=== PATIENT | female | born 1970 | race Caucasian/White ===

== ENCOUNTER 2016-08-05 09:11 | Emergency (ER) | payer BC ==
[2016-08-05 09:29] VITALS: BP 94/74
--- NOTE | 2016-08-05 10:37 | UC ---
Ear Complaint HPI - HPI Summary HPI Summary: bilateral ear plugged no ear pain, no discharge - History of Current Complaint Chief Complaint: UCEar Stated Complaint: EAR Time Seen by Provider: 08/05/16 09:35 Hx Obtained From: Patient Hx Last Menstrual Period: unsure - had a uterine ablation Onset/Duration: Gradual Onset, Lasting Days - 3, Still Present Severity Initially: Moderate Severity Currently: Moderate Pain Intensity: 0 Pain Scale Used: 0-10 Numeric Aggravating Factors: Nothing Alleviating Factors: Nothing Associated Signs/Symptoms: Positive: Hearing Loss. Negative: Discharge, Foreign Body Sensation, Trauma to Ear, Swelling @, URI Symptoms - Allergies/Home Medications Allergies/Adverse Reactions: Allergies Allergy/AdvReac Type Severity Reaction Status Date / Time No Known Allergies Allergy Verified 08/05/16 09:25 Home Medications: Home Medications NK [No Home Medications Reported] 08/05/16 [History Confirmed 08/05/16] PMH/Surg Hx/FS Hx/Imm Hx Endocrine History Of: Denies: Diabetes, Thyroid Disease, Hyperthyroidism, Hypothyroidism, Dyslipidemia Cardiovascular History Of: Denies: Cardiac Disorders, Hypertension, Pacemaker/ICD, Myocardial Infarction , Congestive Heart Failure, Atrial Fibrillation, Deep Vein Thrombosis, Bleeding Disorders Respiratory History Of: Reports: Pneumonia Denies: COPD, Asthma GI/ History Of: Denies: Gastroesophageal Reflux, Ulcer, Gastrointestinal Bleed, Gall Bladder Disease, Kidney Stones, Diverticulitis, Renal Disease, Urosepsis Neurological History Of: Denies: TIA, CVA, Dementia, Seizures, Migraine Psychological History Of: Reports: Anxiety, Depression Cancer History Of: Denies: Lung Cancer, Colorectal Cancer, Breast Cancer, Prostate Cancer, Cervical Cancer - Surgical History Surgical History: Yes Surgery Procedure, Year, and Place: Uterine Ablation, ~2011. T&A, 1975. E- sure procedure - Family History Known Family History: Positive: None Negative: Hypertension, Diabetes, Renal Disease - Social History Alcohol Use: None Substance Use Type: None Smoking Status (MU): Never Smoked Tobacco - Immunization History Most Recent Influenza Vaccination: [id number] Review of Systems Constitutional: Negative Skin: Negative Eyes: Negative ENT: Negative Respiratory: Negative All Other Systems Reviewed And Are Negative: Yes Physical Exam Triage Information Reviewed: Yes Appearance: Well-Appearing, No Pain Distress, Well-Nourished Vital Signs: Initial Vital Signs Temp 99.0 F 08/05/16 09:25 Pulse 76 08/05/16 09:25 Resp 16 08/05/16 09:25 BP 94/74 08/05/16 09:25 Pulse Ox 99 08/05/16 09:25 Vital Signs Reviewed: Yes Eyes: Positive: Conjunctiva Clear ENT: Positive: Normal ENT inspection, Hearing grossly normal, Pharynx normal, Other: - bilater cerumen impaction Neck: Positive: Supple, Nontender, No Lymphadenopathy Respiratory: Positive: Chest non-tender, Lungs clear, Normal breath sounds Cardiovascular: Positive: RRR, No Murmur, Pulses Normal Ear Complaint Course/Dx - Course Course Of Treatment: cerumen was removed from both ears using irrigation - Differential Dx/Diagnosis Provider Diagnoses: cerumen impaction Discharge - Discharge Plan Condition: Stable Disposition: HOME Patient Education Materials: Cerumen Impaction (ED) Referrals: Tiffany Vidal MD [Primary Care Provider] - If Needed
== END 2016-08-05 10:19 | disposition home or self-care (01) ==
LOC: UCCORT 09:11
DX: H61.23 Impacted cerumen, bilateral (principal); F41.9 Anxiety disorder, unspecified; F32.9 Major depressive disorder, single episode, unspecified
CPT/HCPCS: 99213; G0463

== ENCOUNTER 2016-08-10 08:54 | Emergency (ER) | payer BC ==
[2016-08-10 09:07] VITALS: BP 123/82
--- NOTE | 2016-08-10 09:22 | UC ---
Throat Pain/Nasal Binh HPI - HPI Summary HPI Summary: sore throat x 1 day no cough , no nasal congestion , no fever, or chills - History of Current Complaint Chief Complaint: UCRespiratory Stated Complaint: SORE THROAT Time Seen by Provider: 08/10/16 09:13 Hx Obtained From: Patient Hx Last Menstrual Period: n/a Onset/Duration: Gradual Onset, Lasting Days - 1, Still Present Severity: Moderate Cough: None Associated Signs & Symptoms: Negative: Dysphagia, FB Sensation, Drooling, Wheezing, Hoarseness, Sinus Discomfort, Nasal Discharge, Fever, Vomiting, Rash - Allergies/Home Medications Allergies/Adverse Reactions: Allergies Allergy/AdvReac Type Severity Reaction Status Date / Time seasonal Allergy Eyes Uncoded 08/10/16 09:07 Itchy/Swollen/Red/Watery PMH/Surg Hx/FS Hx/Imm Hx Endocrine History Of: Denies: Diabetes, Thyroid Disease, Hyperthyroidism, Hypothyroidism, Dyslipidemia Cardiovascular History Of: Denies: Cardiac Disorders, Hypertension, Pacemaker/ICD, Myocardial Infarction , Congestive Heart Failure, Atrial Fibrillation, Deep Vein Thrombosis, Bleeding Disorders Respiratory History Of: Reports: Pneumonia Denies: COPD, Asthma GI/ History Of: Denies: Gastroesophageal Reflux, Ulcer, Gastrointestinal Bleed, Gall Bladder Disease, Kidney Stones, Diverticulitis, Renal Disease, Urosepsis Neurological History Of: Denies: TIA, CVA, Dementia, Seizures, Migraine Psychological History Of: Reports: Anxiety, Depression Cancer History Of: Denies: Lung Cancer, Colorectal Cancer, Breast Cancer, Prostate Cancer, Cervical Cancer - Surgical History Surgical History: Yes Surgery Procedure, Year, and Place: Uterine Ablation, ~2011. T&A, 1975. E- sure procedure - Family History Known Family History: Positive: None Negative: Hypertension, Diabetes, Renal Disease - Social History Alcohol Use: None Substance Use Type: None Smoking Status (MU): Never Smoked Tobacco - Immunization History Most Recent Influenza Vaccination: [id number] Review of Systems Constitutional: Negative Skin: Negative Eyes: Negative ENT: Sore Throat Respiratory: Negative Cardiovascular: Negative Gastrointestinal: Negative All Other Systems Reviewed And Are Negative: Yes Physical Exam Triage Information Reviewed: Yes Appearance: Well-Appearing, No Pain Distress, Well-Nourished Vital Signs: Initial Vital Signs Temp 98.3 F 08/10/16 09:02 Pulse 97 08/10/16 09:02 Resp 12 08/10/16 09:02 BP 123/82 08/10/16 09:02 Vital Signs Reviewed: Yes Eyes: Positive: Conjunctiva Clear ENT: Positive: Normal ENT inspection, Hearing grossly normal, Pharyngeal erythema, TMs normal. Negative: Nasal congestion, Nasal drainage Neck: Positive: Supple, Nontender, No Lymphadenopathy Respiratory: Positive: Chest non-tender, Lungs clear, Normal breath sounds Cardiovascular: Positive: RRR, No Murmur, Pulses Normal Skin Exam: Normal Throat Pain/Nasal Course/Dx - Differential Dx/Diagnosis Provider Diagnoses: viral pharyngitis Discharge - Discharge Plan Condition: Stable Disposition: HOME Patient Education Materials: Pharyngitis (ED) Referrals: Tiffany Vidal MD [Primary Care Provider] - If Needed Additional Instructions: viral pharyngitis , no need for abx rest, increase fluid, Ibuprofen as needed for pain follow up as needed
== END 2016-08-10 09:37 | disposition home or self-care (01) ==
LOC: UCCORT 08:54
DX: J02.8 Acute pharyngitis due to other specified organisms (principal); B97.89 Other viral agents as the cause of diseases classified elsewhere
CPT/HCPCS: 87651; 99211; G0463

== ENCOUNTER 2016-08-12 07:16 | Emergency (ER) | payer BC ==
[2016-08-12 07:35] VITALS: BP 111/78
--- NOTE | 2016-08-12 07:35 | UC ---
Throat Pain/Nasal Binh HPI - HPI Summary HPI Summary: sever sore throat x 3 days no fever, no chills, + nasal congestion , pnd, mild cough was seen at the urgent care 2 days ago for viral sore throat , not getting better - History of Current Complaint Chief Complaint: UCRespiratory Stated Complaint: SORE THROAT Time Seen by Provider: 08/12/16 07:23 Hx Obtained From: Patient Hx Last Menstrual Period: s/p Uterine Ablation Onset/Duration: Gradual Onset, Lasting Days - 3, Still Present Severity: Severe Cough: Nonproductive Associated Signs & Symptoms: Positive: Sinus Discomfort, Nasal Discharge. Negative: Drooling, Wheezing, Hoarseness, Fever, Vomiting, Rash - Allergies/Home Medications Allergies/Adverse Reactions: Allergies Allergy/AdvReac Type Severity Reaction Status Date / Time seasonal Allergy Eyes Uncoded 08/12/16 07:24 Itchy/Swollen/Red/Watery Home Medications: Home Medications Ibuprofen TAB* [Advil TAB*] 600 mg PO Q6H PRN 08/12/16 [History Confirmed ] Pseudoephedrine TAB* [Sudafed TAB*] 60 mg PO Q6H PRN 08/12/16 [History Confirmed 08/12/16] PMH/Surg Hx/FS Hx/Imm Hx Previously Healthy: Yes - Surgical History Surgical History: Yes Surgery Procedure, Year, and Place: Uterine Ablation, ~2011. T&A, 1975. E- sure procedure - Family History Known Family History: Positive: None Negative: Hypertension, Diabetes, Renal Disease - Social History Alcohol Use: Rare Substance Use Type: None Smoking Status (MU): Never Smoked Tobacco - Immunization History Most Recent Influenza Vaccination: Not the Season Review of Systems Constitutional: Negative Skin: Negative Eyes: Negative ENT: Sore Throat, Nasal Discharge Respiratory: Cough Cardiovascular: Negative Gastrointestinal: Negative Genitourinary: Negative All Other Systems Reviewed And Are Negative: Yes Physical Exam Triage Information Reviewed: Yes Appearance: Well-Appearing, No Pain Distress, Well-Nourished Vital Signs: Initial Vital Signs Temp 98.5 F 08/12/16 07:21 Pulse 95 08/12/16 07:21 Resp 16 08/12/16 07:21 BP 111/78 08/12/16 07:21 Pulse Ox 99 08/12/16 07:21 Vital Signs Reviewed: Yes Eyes: Positive: Conjunctiva Clear ENT: Positive: Normal ENT inspection, Hearing grossly normal, Pharyngeal erythema, Nasal congestion, Nasal drainage Neck exam: Normal Neck: Positive: Supple, Nontender, No Lymphadenopathy Respiratory: Positive: Chest non-tender, Lungs clear, Normal breath sounds Cardiovascular: Positive: RRR, No Murmur, Pulses Normal Skin Exam: Normal Throat Pain/Nasal Course/Dx - Differential Dx/Diagnosis Provider Diagnoses: viral pharyngitis Discharge - Discharge Plan Condition: Stable Disposition: HOME Patient Education Materials: Pharyngitis (ED) Referrals: Tiffany Vidal MD [Primary Care Provider] - If Needed
== END 2016-08-12 07:40 | disposition home or self-care (01) ==
LOC: UCCORT 07:16
DX: J02.8 Acute pharyngitis due to other specified organisms (principal)
CPT/HCPCS: 99211; G0463

== ENCOUNTER 2017-08-04 07:22 | Emergency (ER) | payer BC ==
[2017-08-04 07:38] VITALS: BP 112/84
--- NOTE | 2017-08-04 07:50 | UC ---
Ear Complaint HPI - HPI Summary HPI Summary: 47 yo female with bilat plugged ears and decreased hearing x 2 weeks mild seasonal allergies no f/c no CASEY or myalgias - History of Current Complaint Chief Complaint: UCEar Stated Complaint: BI LAT EAR COMP Time Seen by Provider: 08/04/17 07:41 Hx Obtained From: Patient Hx Last Menstrual Period: 2 mos. Onset/Duration: Gradual Onset Severity Currently: None Pain Intensity: 0 Pain Scale Used: 0-10 Numeric Associated Signs/Symptoms: Positive: Hearing Loss - Allergies/Home Medications Allergies/Adverse Reactions: Allergies Allergy/AdvReac Type Severity Reaction Status Date / Time seasonal Allergy Eyes Uncoded 08/04/17 07:39 Itchy/Swollen/Red/Watery Home Medications: Home Medications buPROPion TAB* [Wellbutrin TAB*] 300 mg PO DAILY 08/04/17 [History Confirmed ] PMH/Surg Hx/FS Hx/Imm Hx Previously Healthy: Yes - Surgical History Surgical History: Yes Surgery Procedure, Year, and Place: Uterine Ablation, ~2011. T&A, 1974. E- sure procedure - Family History Known Family History: Positive: Cardiac Disease, Hypertension, Diabetes Negative: Renal Disease - Social History Alcohol Use: None Substance Use Type: None Smoking Status (MU): Never Smoked Tobacco - Immunization History Most Recent Influenza Vaccination: [id number] Review of Systems Constitutional: Negative Skin: Negative Eyes: Negative ENT: Sinus Congestion, Other - decreased hearing Respiratory: Negative Cardiovascular: Negative Gastrointestinal: Negative Genitourinary: Negative Motor: Negative Neurovascular: Negative Musculoskeletal: Negative Neurological: Negative Psychological: Negative Is Patient Immunocompromised?: No All Other Systems Reviewed And Are Negative: Yes Physical Exam Triage Information Reviewed: Yes Appearance: Well-Appearing, No Pain Distress, Well-Nourished Vital Signs: Initial Vital Signs Temp 98.5 F 08/04/17 07:33 Pulse 84 08/04/17 07:33 Resp 18 08/04/17 07:33 BP 112/84 08/04/17 07:33 Pulse Ox 100 08/04/17 07:33 Vital Signs Reviewed: Yes ENT: Positive: Pharynx normal, Nasal congestion, Uvula midline. Negative: Hearing grossly normal, Nasal drainage, TMs normal - unable to vis due to cerumen, Trismus, Muffled voice, Hoarse voice, Sinus tenderness Dental Exam: Normal Neck: Positive: Supple, Nontender Respiratory: Positive: Lungs clear, Normal breath sounds, No respiratory distress Cardiovascular: Positive: RRR, No Murmur Musculoskeletal: Positive: ROM Intact, No Edema Neurological: Positive: Alert Psychological Exam: Normal Skin Exam: Normal Re-Evaluation - Re-Evaluation First Eval Re-Evaluation Time: 08:21 Change: Improved - hearing normal after flush/ TMs normal Ear Complaint Course/Dx - Differential Dx/Diagnosis Provider Diagnoses: cerumen impaction bilaterally. seasonal allergic rhinnitis Discharge - Sign-Out/Discharge Documenting (check all that apply): Discharge/Admit/Transfer - Discharge Plan Condition: Stable Disposition: HOME Prescriptions: Fluticasone NASAL SPRAY 50MCG* [Flonase NASAL SPRAY 50MCG*] 1 - 2 spray BOTH NARES BID #1 btl Patient Education Materials: Cerumen Impaction (ED), Allergic Rhinitis (ED) Referrals: Tiffany Vidal MD [Primary Care Provider] - Additional Instructions: benadryl 25-50 mg at bedtime for allergy symptoms - Billing Disposition and Condition Condition: STABLE Disposition: HOME
== END 2017-08-04 08:28 | disposition home or self-care (01) ==
LOC: UCCORT 07:22
DX: H61.23 Impacted cerumen, bilateral (principal); J30.2 Other seasonal allergic rhinitis
CPT/HCPCS: 99212; G0463

== ENCOUNTER 2017-12-28 16:35 | Emergency (ER) | payer BC ==
[2017-12-28 18:40] VITALS: BP 108/85
--- NOTE | 2017-12-28 19:08 | UC ---
Ear Complaint HPI - HPI Summary HPI Summary: 47-year-old female presents with 2 week history of bilateral ear fullness. She has a history of past cerumen impactions. States she's been using the proximal without any improvement in symptoms. She denies any fever, chills, ear pain or drainage, dizziness or vertigo, nasal congestion, sore throat, or cough. - History of Current Complaint Chief Complaint: UCEar Stated Complaint: PLUGGED EARS Time Seen by Provider: 12/28/17 18:35 Hx Obtained From: Patient Hx Last Menstrual Period: 2 mos. Onset/Duration: Gradual Onset, Lasting Weeks - 2 Pain Intensity: 0 Aggravating Factors: Nothing Alleviating Factors: Nothing Associated Signs/Symptoms: Positive: Hearing Loss. Negative: Discharge, URI Symptoms - Allergies/Home Medications Allergies/Adverse Reactions: Allergies Allergy/AdvReac Type Severity Reaction Status Date / Time seasonal Allergy Eyes Uncoded 08/04/17 07:39 Itchy/Swollen/Red/Watery PMH/Surg Hx/FS Hx/Imm Hx Previously Healthy: Yes Psychological History: Depression - Surgical History Surgical History: Yes Surgery Procedure, Year, and Place: Uterine Ablation, ~2011. T&A, 1974. E- sure procedure - Family History Known Family History: Positive: Cardiac Disease, Hypertension, Diabetes Negative: Renal Disease - Social History Occupation: Employed Full-time Lives: With Family Alcohol Use: None Substance Use Type: None Smoking Status (MU): Never Smoked Tobacco - Immunization History Most Recent Influenza Vaccination: [id number] Review of Systems Constitutional: Negative Skin: Negative Eyes: Negative ENT: Other - See history of present illness Respiratory: Negative Cardiovascular: Negative Is Patient Immunocompromised?: No All Other Systems Reviewed And Are Negative: Yes Physical Exam Triage Information Reviewed: Yes Appearance: Well-Appearing, No Pain Distress, Well-Nourished Vital Signs: Initial Vital Signs Temp 98.2 F 12/28/17 18:34 Pulse 96 12/28/17 18:34 Resp 17 12/28/17 18:34 BP 108/85 12/28/17 18:34 Pulse Ox 98 12/28/17 18:34 Vital Signs Reviewed: Yes Eyes: Positive: Conjunctiva Clear. Negative: Discharge ENT: Positive: Pharynx normal, Uvula midline, Other - Bilateral cerumen impaction. TMs not visualized.. Negative: Nasal congestion, Nasal drainage, Sinus tenderness Re-Evaluation - Re-Evaluation First Eval Re-Evaluation Time: 19:27 Change: Improved - Bilateral ear canals irrigated by RN. Moderate amount of cerumen removed without complication. Patient states post-irrigation that hearing is much improved. Bilateral ear canals clear of impaction. Mild erythema of the external auditory canals. Bilateral TMs intact, opaque, with good cone of light. Ear Complaint Course/Dx - Course Course Of Treatment: 47 year old female with history of cerumen impaction presents with 2 week hisotry of ear fullness and decreased hearing. Initial exam revealed bilateral cerumen impaction. Ear canals irrigated by RN. Post- irrigation showed clear bilateral external ear canals with intact TMs. Patient tolerated procedure well without complication and reported improved hearing. - Differential Dx/Diagnosis Provider Diagnoses: Bilateral cerumen impaction Discharge - Sign-Out/Discharge Documenting (check all that apply): Patient Departure All imaging exams completed and their final reports reviewed: No Studies - Discharge Plan Condition: Stable Disposition: HOME Patient Education Materials: Cerumen Impaction (ED) Referrals: Tiffany Vidal MD [Primary Care Provider] - If Needed Additional Instructions: Your ears were flushed in the earwax buildup removed successfully. There was no indication of any infection. Be sure not to place anything in your ears as this can shove the ear wax in deeper and potentially cause injury to the ear drum. If you have recurrent issue with a buildup of earwax try instilling a few drops of mineral oil into each ear twice a week to help keep the earwax soft and able to drain on its own. Follow-up with your primary care provider for any problems. - Billing Disposition and Condition Condition: STABLE Disposition: Home - Attestation Statements Provider Attestation: Per institutional requirements, I have reviewed the chart, however, I was not consulted specifically or made aware of this patient by the midlevel provider. I did not personally evaluate, interact with , or disposition this patient.
== END 2017-12-28 19:38 | disposition home or self-care (01) ==
LOC: UCCORT 16:35
DX: H61.23 Impacted cerumen, bilateral (principal); J30.2 Other seasonal allergic rhinitis
CPT/HCPCS: 99213; G0463

== ENCOUNTER 2018-06-01 08:03 | Emergency (ER) | payer BC ==
[2018-06-01 08:14] VITALS: BP 119/77
--- OUTSIDE RECORDS SUMMARY | 2018-06-01 08:14 | XMS REPORT | Continuity of Care Document ---
:1970 External Reference #:[id number] Author Name Bari Chakraborty M.D. Address [address] [place] [address] Care Team Providers Name Role Phone Tiffany Vidal MD Care Team Information Airline Pilot/First Officer Unavailable Tiffany Vidal MD Primary Care Physician Unavailable Payers Date Identification Numbers Payment Provider Subscriber Expires: 2011 Policy Number: [id number] Nickie Knox PayID: [id number] [address] [address] [place] [address] Policy Number: [id number] Nickie Knox PayID: [id number] [address] [place] [address] Advance Directives Description No Information Available Problems Description No Information Family History Description No Information Available Social History Type Date Description Comments Sex Unknown Lives With Diet Patient follows no dietary restrictions Occupation Telecommunications Equipment Installer Tobacco Use Start: Unknown Never Smoked Cigarettes ETOH Use Occasionally consumes alcohol Allergies, Adverse Reactions, Alerts Description No Known Drug Allergies Medications Medication Date Status Form Strength Qnty SIG Indications Ordering Provider Bupropion 00/00/ Active Tablets 150mg 1 by mouth Unknown Hydrochloride ER 0000 ER 24HR every day (XL) Naftifine HCL 00/00/ Active Cream 2% apply thin Unknown 0000 layer to abdominal rash twice daily Bupropion 00/00/ Active Tablets 300mg 1 by mouth Unknown Hydrochloride ER 0000 ER 24HR every day (XL) Immunizations Description No Information Available Vital Signs Date Vital Result Comment 05/11/2018 11:19am BP Systolic 114 mmHg BP Diastolic 77 mmHg Heart Rate 91 /min Height 69 inches 5'9" Weight 222.00 lb BMI (Body Mass Index) 32.8 kg/m2 BSA (Body Surface Area) 2.16 m2 Bricelyn body weight in kilograms 66 kg O2 % BldC Oximetry 96 % Results Description No Information Available Procedures Date Code Description Status 05/05/2018 70442378 Mammogram Completed 04/26/2017 38762 ECHO Transthoracic Inc Performance Continuous Completed Electrocardio 05/03/2011 86678 Anesthesia, Hysteroscopy, Hystersalpingography Completed 04/29/2011 01193 EKG Interpretation And Report Only Completed 12/11/2009 85852 EKG Interpretation And Report Only Completed Encounters Description No Information Available Plan of Treatment Future Appointment(s):06/01/2018 9:45 am - Bari Chakraborty M.D. at [id number]/11/2018 - Bari Chakraborty M.D.[id number] Other abnormal and inconclusive findings on diagnostic imaging of breastComments:Image guided sampling as well as necessary at this point; very little additional to gain from physical examination. It was important to review the radiology findings and outline the biopsy process as well as the return here so that findings can be reviewed and as necessary decisions can be addressed.Again, mammogram and ultrasound reports were reviewed with her line by line. Questions were addressed. Although unsettled at the need for additional testing she is nonetheless willing to proceed as recommended.
--- OUTSIDE RECORDS SUMMARY | 2018-06-01 08:14 | XMS REPORT | Continuity of Care Document ---
:1970 External Reference #:[id number] Author Name Roman Bar MD Address [facility] [place] [address] Care Team Providers Name Role Phone Tiffany Vidal MD Care Team Information Dispatcher Maintenance Unavailable Tiffany Vidal MD Primary Care Physician Unavailable Payers Date Identification Numbers Payment Provider Subscriber Policy Number: [id number] Of ALEXIS Knox PayID: [id number] [address] [address] [place] [address] Advance Directives Description No Information Available Problems Date Description Provider Status Onset: 04/20/2018 Gastroesophageal reflux disease Maria Luisa Pineda PA-C Active Onset: 04/20/2018 Sore throat symptom Maria Luisa Pineda PA-C Active Onset: 04/20/2018 Esophageal dysphagia Maria Luisa Pineda PA-C Active Family History Description No Information Available Social History Type Date Description Comments Sex Unknown ETOH Use Drinks 1 Alcoholic Beverage Per Week Tobacco Use Start: Unknown Patient has never smoked Smoking Status Reviewed: 04/20/18 Patient has never smoked Allergies, Adverse Reactions, Alerts Description No Known Drug Allergies Medications Medication Date Status Form Strength Qnty SIG Indications Ordering Provider Polyethylene 04/28/ Active Powder 3350NF 527uni take 1 Roman D. Glycol 3350 2019 ts samuel Bar (17gm) (dissolved in water) by mouth once daily Omeprazole 04/10/ Active Capsules 40mg 30caps 1 by mouth R13.[address] every day Tiffany MD 30min before a meal--call with update at refill Bupropion HCL 01/20/ Active Tablets ER 150mg 30tabs 1 by mouth F33.1 Vidal ER (XL) 2018 24HR every day , MD Tiffany in the morning, total 450mg daily Naftifine HCL 10/23/ Active Cream 2% 45unit Wash And Vidal 2018 s Dry Feet , MD Tiffany And Apply This Cream To Feet Daily, Massage In To Affected Areas Plus Margin Of Healthy Skin, 2 Weeks Bupropion HCL 12/20/ Active Tablets ER 300mg 30tabs 1 by mouth F33.1 Vidal ER (XL) 2016 24HR every day, , MD Tiffany total 450mg daily Colyte With 11/24/ Hx Solution 240gm 4000ml by mouth Roman D. Flavor Packs 2015 - Rec as Yosvany 04/19/ directed 2018 Miralax 11/24/ Hx Powder 3350NF 1units as Roman DAnnalise 2015 - directed Yosvany, 2018 No Active 10/10/ Hx Unknown Medications 2015 - 2015 No Active 10/07/ Hx Unknown Medications 2015 - 2015 Colyte-Flavor 10/07/ Hx Solution 240gm 4000ml As K62.5 Annelise Packs 2015 - Rec directed Julien 10/10/ LIQUID FLOOR AND WALL APPLIER-Liliane 2015 Medications Administered in Office Medication Date Status Form Strength Qnty SIG Indications Ordering Provider Influenza Administered Injection Unknown 2 Immunizations CPT Code Status Date Vaccine Lot # 87146 Given 12/28/2017 Influenza [place] Vacc[place], [place] [address] Given 12/25/2014 Influenza [place] [address] Given 12/04/2012 Influenza Virus [place], [place] [address] Given 11/24/2011 Tetanus, Diphtheria Toxoids/Acellular Pertussis Vaccine 7 Or > [id number] Refused 10/08/2016 Influenza Virus Vaccine, Quadrivalent, Split, Preservative Free Vital Signs Date Vital Result Comment 04/20/2018 2:02pm Height 70 inches 5'10" Weight 220.00 lb BP Systolic 116 mmHg BP Diastolic 92 mmHg Heart Rate 90 /min BMI (Body Mass Index) 31.6 kg/m2 10/08/2015 9:48am Height 70 inches 5'10" Weight 194.00 lb BMI (Body Mass Index) 27.8 kg/m2 Results Test Date Facility Test Result H/L Range Note Laboratory test finding 04/28/2018 [facility] Clotest SEE RESULT BELOW 1 Surgical Interface Order SEE RESULT BELOW 2 Laboratory test 10/10/2017 N2N/CCD Import Pap Smear Thin ok 3 finding Prep Laboratory test 04/15/2017 N2N/CCD Import Chol/ HDL Ratio 3.0 ratio Low 3.7-5.6 4 finding Cholesterol 191 mg/dL 50-199 HDL 63 mg/dL 35-85 5 LDL (Calc) 111 mg/dL High 20-99 6 Triglycerides 84 mg/dL 30-200 VLDL 17 mg/dL 2-29 CBC With Auto Diff 04/15/2017 N2N/CCD Import Abs Basophils 0.0 K/uL 0- 0.3 Abs Eosinophils 0.1 K/uL 0-0.5 Abs Lymphocytes 2.2 K/uL 0.8-5.5 Abs Monocytes 0.5 K/uL 0.1-1 Abs Neutrophils 3.7 K/uL 2.1-8 Basophil 0.3 % 0-4 Eosinophil 1.6 % 0-5 Hematocrit 38.4 % 36-47 Hemoglobin 13.6 gm/dL 12-16 Lymphocyte 33.3 % 16-52 MCH 32.4 pg High 27-32 MCHC 35.5 g/dL 32-36 MCV 91.3 fL 80-97 MPV 8.5 FL 7.1-10.7 Monocyte 7.6 % 2-10 Neutrophil 57.2 % 35-75 PLT Count 241 K/ul 140-400 RBC 4.20 M/uL 4-5.4 RDW 13.0 % 11.5-14.5 WBC 6.5 K/uL 4.1-11 Comprehensive Met Panel-FCMG 04/15/2017 N2N/CCD Import A/G Ratio 1.6 Ratio 1-2.2 Lluvia Egfr >60 7 Albumin 4.2 g/dL 3.6-4.9 Alkaline Phosphatase 51 U/L 24-140 Alt 12 U/L 3-42 Anion Gap 8 mmol/L 7-16 8 Ast 15 U/L 8-42 BUN 12 mg/dL 6-26 Calcium 9.2 mg/dL 8.5-10.2 Carbon Dioxide 23 mmol/L Low 24-34 Chloride# 107 mmol/L 97-110 9 Creatinine 0.9 mg/dL 0.5-1.4 Globulin 2.6 g/dL 2-3.5 Glucose 99 mg/dL 70-105 Non Lluvia Egfr >60 10 Potassium 4.0 mmol/L 3.5-5.2 Sodium 138 mmol/L 135-146 11 Total Bilirubin 0.7 mg/dL 0.1-1.3 Total Protein 6.8 g/dL 6-8 Laboratory test 11/25/2015 [facility] Surgical Interface SEE RESULT BELOW finding Order 1 SEE RESULT BELOW Name: JASONAIXA : [address]: Roman Bar MD Acct: [id number] Unit: [id number] AGE: 48 Location: [facility] Re04/28/18 SEX: F Status: DEP REF SPEC: [id number] DIANA: 04/28/18-[address] [facility] [address]: Roman Bar MD REQ: [id number] RECD: 04/28/18-1243 STATUS: LOREE PADRON DR: Tiffany Vidal MD _ SOURCE: GAS ANTRUM SPDESC: ORDERED: Clotest Procedure Result Reported Site Clotest Final 04/29/18- 0746 ML Clotest Negative * ML - [facility] . END OF REPORT DEPARTMENT OF PATHOLOGY, [address] [place] [address] Noah Meyer M.D. Director [facility] # [id number] 2 SEE RESULT BELOW Name: AIXA KNOX : [address]: Roman Bar MD Acct: [id number] Unit: [id number] AGE: 48 Location: [facility] Re04/28/18 SEX: F Status: DEP REF SPEC: [id number] DIANA: 04/28/18-Lia CLARK DR: Roman aBr MD REQ: [id number] RECD: 04/28/181236 STATUS: SOPHIE PADRON DR: Tiffany Vidal MD _ ORDERED: LEVEL 4 COMMENTS: [id number] FINAL DIAGNOSIS Esophagus, random biopsies: -- Superficial squamous epithelium with no significant pathologic abnormality. -- No evidence of eosinophilic or reflux esophagitis identified. -- No glandular elements identified. CLINICAL HISTORY Dysphagia POST-OPERATIVE DIAGNOSIS EGD: esophagus - rings, tortuous, no stricture, large hiatal hernia; gastric and duodenum - normal GROSS DESCRIPTION The specimen is received in formalin labeled, Biopsy Random Esophagus, and consists of a 0.5 x 0.4 x 0.1 cm aggregate of lyles-white irregular soft tissue fragments which is submitted entirely in one cassette. Signed by and Reported on: Noah Meyer MD 1150 END OF REPORT DEPARTMENT OF PATHOLOGY, [address] [place] [address] Noah Meyer M.D. Director [facility] # [id number] 3 LAB[facility]ATORY [facility], [facility]. [address] [place] [address] CYTOLOGY REPORT Source of Specimen(s): Thin Prep Cervical / Endocervical Pap Smear - One Vial Date of Last Menstrual Period: 07/29 Other Clinical Conditions: Last Pap Smear: 2017 normal REFLEX TO HPV ASSAY IF RESULTS OF THIS PAP ARE ASCUS Specimen Adequacy SATISFACTORY FOR EVALUATION PRESENCE OF ENDOCERVICAL/TRANSFORMATION ZONE COMPONENT General Categorization NEGATIVE FOR INTRAEPITHELIAL LESION OR MALIGNANCY Interpretation NEGATIVE FOR INTRAEPITHELIAL LESION OR MALIGNANCY Reported: 10/12/2017 11:10 Electronically Signed Out By Kendra Castillo MS,SCT(ASCP)([facility]) shana Smith CT(ASCP) [facility] ICD9 Code: Z01.411 Z87.41 CPT code: A: GJ974H QC Reviewed: Y Unless otherwise specified, testing performed by [facility] [place] [facility] [address] [place] [address] 4 last food at 930 , today letter 5 Per NCEP ATP III Guidelines: Results lower than 40 mg/dL are suggestive of increased risk for coronary artery disease. Results > or=to 60 mg/dL are considered a negative risk factor. 6 Per NCEP ATP III Guidelines: Normal Population <130 Patients with medical conditions: CHD/DM Optimal: <100 Borderline high: 130-159 High: 160-189 Very high: >189 7 Concerning GFR Guidelines for Americans: Normal function or mild renal disease, if clinically at risk: >/=60 mL/min Moderately decreased: 30-59 Severely decreased: 15-29 Renal failure: <15 8 Updated reference range on new analyzer 9 Updated reference range on new analyzer 10 Concerning GFR Guidelines: Normal function or mild renal disease, if clinically at risk: >/=60 mL/min Moderately decreased: 30-59 Severely decreased: 15-29 Renal failure: <15 Glomerular Filtration Rate (GFR) is estimated based on the MDRD equation, which assumes a steady state for creatinine as recommended by the National Kidney Disease Education Program in conjunction with the National Institutes of Health and the National Kidney Foundation. Clinical conditions in which it may be necessary to measure GFR by using clearance methods include extremes of age and body size, severe malnutrition or obesity, diseases of skeletal muscle, paraplegia or quadriplegia, vegetarian diet, rapidly changing kidney function, and calculation of the dose of potentially toxic drugs that are excreted by the kidneys. 11 Updated reference range on new analyzer 12 [id number] 13 SEE RESULT BELOW Name: AIXA KNOX : [address]: Roman Bar MD Acct: [id number] Unit: [id number] AGE: 45 Location: [facility] Re11/25/15 SEX: F Status: REG REF SPEC: [id number] DIANA: 11/25/15-[address] [facility] [address]: Roman Bar MD REQ: [id number] RECD: 11/25/155198 STATUS: SOPHIE PADRON DR: Tiffany Vidal MD _ ORDERED: LEVEL IV COMMENTS: [id number] FINAL DIAGNOSIS Colon, at 65 cm, biopsy: -- Benign colonic mucosa with surface hyperplastic change. CLINICAL HISTORY No history given POST-OPERATIVE DIAGNOSIS Colonoscopy to cecum - polyp at 45 cm. biopsied, internal hemorrhoids. Conclusions/Plan: 5-10 years, hemorrhoids GROSS DESCRIPTION The specimen is received in formalin labeled, Polyp at 65 cm, and consists of a 0.7 x 0.3 x 0.2 cm, lyles-brown, irregular to polypoid, soft tissue fragment, which is entirely submitted in one cassette. Signed (signature on file) Suzanne Crum MD 1712 END OF REPORT * ML=Testing performed at Main Lab DEPARTMENT OF PATHOLOGY, [address] [place] [address] Noah Meyer M.D. Director [facility] # [id number] Procedures Date Code Description Status 11/25/2015 23560 Colonscopy+Biopsy Completed Encounters Type Date Location Provider Dx Diagnosis Office Visit 10/08/2015 [facility] Annelise Victoria, Sulema62.5 Hemorrhage of 9:45a [facility] LIQUID FLOOR AND WALL APPLIER-C anus and rectum Plan of Treatment No Information Available
--- NOTE | 2018-06-01 08:59 | ED ---
Throat Pain/Nasal Congestion - HPI Summary HPI Summary: 48 yr old female with a week and a half of trouble hearing and feeling like her ears are plugged. She denies runny nose, cough, congestion. She has no other complaints. She does not have pain. - History of Current Complaint Chief Complaint: UCEar Time Seen by Provider: 06/01/18 08:26 - Allergies/Home Medications Allergies/Adverse Reactions: Allergies Allergy/AdvReac Type Severity Reaction Status Date / Time seasonal Allergy Eyes Uncoded 06/01/18 08:12 Itchy/Swollen/Red/Watery PMH/Surg Hx/FS Hx/Imm Hx Endocrine/Hematology History: Denies: Hx Diabetes, Hx Thyroid Disease Cardiovascular History: Denies: Hx Congestive Heart Failure, Hx Deep Vein Thrombosis, Hx Hypertension , Hx Myocardial Infarction, Hx Pacemaker/ICD Respiratory History: Reports: Hx Pneumonia Denies: Hx Asthma, Hx Chronic Obstructive Pulmonary Disease (COPD), Hx Lung Cancer GI History: Denies: Hx Gall Bladder Disease, Hx Gastrointestinal Bleed, Hx Ulcer, Hx Urosepsis History: Denies: Hx Kidney Stones, Hx Renal Disease Neurological History: Denies: Hx Dementia, Hx Migraine, Hx Seizures, Hx Transient Ischemic Attacks (TIA) Psychiatric History: Reports: Hx Anxiety, Hx Depression - Surgical History Surgery Procedure, Year, and Place: Uterine Ablation, ~2011. T&A, 1975. E- sure procedure. breast biopsy 05/30 Infectious Disease History: No Infectious Disease History: Denies: Hx Hepatitis, Hx Human Immunodeficiency Virus (HIV), Traveled Outside the [place] in Last 30 Days - Family History Known Family History: Positive: Cardiac Disease, Hypertension, Diabetes Negative: Renal Disease - Social History Occupation: Employed Full-time Alcohol Use: Rare Substance Use Type: Reports: None Smoking Status (MU): Never Smoked Tobacco Review of Systems Constitutional: Negative Positive: Other - ears plugged All Other Systems Reviewed And Are Negative: Yes Physical Exam Triage Information Reviewed: Yes Vital Signs On Initial Exam: Initial Vitals Temp Pulse Resp BP Pulse Ox 98.1 F 88 16 119/77 98 06/01/18 08:11 06/01/18 08:11 06/01/18 08:11 06/01/18 08:11 06/01/18 08:11 Vital Signs Reviewed: Yes Appearance: Positive: Well-Appearing, No Pain Distress Skin: Positive: Warm, Skin Color Reflects Adequate Perfusion Head/Face: Positive: Normal Head/Face Inspection Eyes: Positive: EOMI, LAURIE ENT: Positive: Other - bilateral cerumen impactions Neck: Positive: Nontender Respiratory/Lung Sounds: Positive: Clear to Auscultation, Breath Sounds Present Cardiovascular: Positive: RRR. Negative: Murmur Abdomen Description: Positive: Nontender. Negative: Distended Musculoskeletal: Positive: Strength/ROM Intact Neurological: Positive: Sensory/Motor Intact, Alert, Oriented to Person Place, Time, CN Intact II-III, Normal Gait, Speech Normal Diagnostics - Vital Signs Vital Signs Temp Pulse Resp BP Pulse Ox 06/01/18 08:11 98.1 F 88 16 119/77 98 - Laboratory Lab Statement: Any lab studies that have been ordered have been reviewed, and results considered in the medical decision making process. EENT Course/Dx - Course Course Of Treatment: 48 yr old with bilateral cerumen impaction. DC home in stable condition. - Diagnoses Provider Diagnoses: Impacted cerumen of both ears Discharge - Sign-Out/Discharge Documenting (check all that apply): Patient Departure All imaging exams completed and their final reports reviewed: No Studies - Discharge Plan Condition: Good Disposition: HOME Patient Education Materials: Cerumen Impaction (ED) Referrals: Tiffany Vidal MD [Primary Care Provider] - 2 Days - Billing Disposition and Condition Condition: GOOD Disposition: Home
== END 2018-06-01 09:02 | disposition home or self-care (01) ==
LOC: UCCORT 08:03
DX: H61.23 Impacted cerumen, bilateral (principal); Z91.048 Other nonmedicinal substance allergy status
CPT/HCPCS: 99213; G0463

== ENCOUNTER 2018-10-10 20:00 | Emergency (ER) | payer BC ==
[2018-10-10 20:12] VITALS: BP 102/83
[2018-10-10] MEDS ORDERED: diPHENhydraMINE PO* 50 MG PO ONE (20:23)
[2018-10-10] MEDS ORDERED: predniSONE TAB* 20 MG PO ONE (20:24)
--- NOTE | 2018-10-10 21:05 | UC ---
Skin Complaint HPI - HPI Summary HPI Summary: 48 yo female presents minutes after at least four insect stings (? ground wasps) 2 or more stings feet a sting right hand (thenar eminence) 1 sting left shinto c/o localized pain mild localized itching no throat tightness no hives no wheezing no n/v thinks her tetanus is UTD - History of Current Complaint Chief Complaint: UCSkin Time Seen by Provider: 10/10/18 20:03 Stated Complaint: MULTIPLE BEE STINGS-SWOLLEN FEET AND HEADACHE Hx Obtained From: Patient Hx Last Menstrual Period: n/a Onset/Duration: Sudden Onset, Lasting Minutes Skin Exposure Onset/Duration: Minutes Ago Onset Severity: Moderate Current Severity: Moderate Pain Intensity: 6 Pain Scale Used: 0-10 Numeric Location: Discrete Character: Pruritus, Pain, Redness Aggravating Factor(s): Nothing Alleviating Factor(s): Nothing Associated Signs & Symptoms: Positive: Tenderness Related History: Insect Bite/Sting - ground wasps - Allergy/Home Medications Allergies/Adverse Reactions: Allergies Allergy/AdvReac Type Severity Reaction Status Date / Time seasonal Allergy Eyes Uncoded 10/10/18 20:09 Itchy/Swollen/Red/Watery PMH/Surg Hx/FS Hx/Imm Hx Previously Healthy: Yes - Surgical History Surgical History: Yes Surgery Procedure, Year, and Place: Uterine Ablation, ~2011. T&A, 1975. E- sure procedure. breast biopsy 05/30 - Family History Known Family History: Positive: Cardiac Disease, Hypertension, Diabetes Negative: Renal Disease - Social History Alcohol Use: Rare Substance Use Type: None Smoking Status (MU): Never Smoked Tobacco - Immunization History Most Recent Influenza Vaccination: 8382-0835 Review of Systems All Other Systems Reviewed And Are Negative: Yes Constitutional: Positive: Negative Skin: Positive: Negative Eyes: Positive: Negative ENT: Positive: Negative Respiratory: Positive: Negative Cardiovascular: Positive: Negative Gastrointestinal: Positive: Negative Genitourinary: Positive: Negative Motor: Positive: Negative Neurovascular: Positive: Negative Musculoskeletal: Positive: Negative Neurological: Positive: Negative Psychological: Positive: Negative Physical Exam Triage Information Reviewed: Yes Appearance: Well-Appearing, No Pain Distress, Well-Nourished Vital Signs: Initial Vital Signs Temp 98.3 F 10/10/18 20:01 Pulse 84 10/10/18 20:01 Resp 17 10/10/18 20:01 BP 102/83 10/10/18 20:01 Pulse Ox 99 10/10/18 20:01 Vital Signs Reviewed: Yes Eyes: Positive: Conjunctiva Clear ENT: Positive: Normal ENT inspection Dental Exam: Normal Neck: Positive: Supple, Nontender, No Lymphadenopathy Respiratory: Positive: Lungs clear, Normal breath sounds, No respiratory distress, No accessory muscle use Cardiovascular: Positive: RRR, No Murmur Musculoskeletal: Positive: ROM Intact, Edema @ - mild edema sting sites Psychological Exam: Normal Skin Exam: Other - no stingers/slight localized edema and redness at sting sites Re-Evaluation - Re-Evaluation First Eval Re-Evaluation Time: 21:03 Change: Improved Course/Dx - Diagnoses Provider Diagnosis: Insect stings Discharge - Sign-Out/Discharge Documenting (check all that apply): Patient Departure All imaging exams completed and their final reports reviewed: No Studies - Discharge Plan Condition: Stable Disposition: HOME Patient Education Materials: Insect Bite or Sting (ED) Referrals: Tiffany Vidal MD [Primary Care Provider] - 3 Days (if not better) Additional Instructions: you may take benadryl 50mg 4 x day if needed for itching ice you may note increased local swelling in AM elevate call for any questions return for any concerns check with your MD that your tetanus is up to date - Billing Disposition and Condition Condition: STABLE Disposition: Home
== END 2018-10-10 21:12 | disposition home or self-care (01) ==
LOC: UCCORT 20:00
DX: T63.481A Toxic effect of venom of other arthropod, accidental (unintentional), initial encounter (principal); Y92.9 Unspecified place or not applicable
CPT/HCPCS: 99212; A9270-GY; G0463; J7512

== ENCOUNTER 2018-11-28 15:29 | Emergency (ER) | payer BC ==
--- OUTSIDE RECORDS SUMMARY | 2018-11-28 15:52 | XMS REPORT | Continuity of Care Document ---
:1970 External Reference #:[id number] Author Name Tiffany Vidal MD Address [address] [place] [address] Care Team Providers Name Role Phone Terri Douglaspedro - Gastroenterology Care Team Information Operations Welder Roman Bar MD Care Team Information Operations Welder [phone] Bari Chakraborty MD - Surgery Care Team Information Operations Welder Problems Active Problems Provider Date FH: Diabetes mellitus Tiffany Vidal MD Onset: 07/09/2013 Moderate recurrent major depression Tiffany Vidal MD Onset: 12/04/2012 History of dysplasia of cervix Tiffany Vidal MD Onset: 10/01/2015 Diaphragmatic hernia Tiffany Vidal MD Onset: 08/23/2018 Social History Type Date Description Comments Sex Unknown ETOH Use Rarely consumes < 1 / mo alcohol Tobacco Use Start: Unknown Patient has never smoked Recreational Drug Use Denies Drug Use Smoking Status Reviewed: 10/10/17 Patient has never smoked Exercise Type/Frequency Exercises regularly Exercises regularly - runner, variable, 3-5 days, 3-5 miles; does local races, studio model, half mar, full mar; 07/09/2013 counselled 150min per week or 10k steps per day; 10/01/15 running and cross fit, counselled 150min per oivo65e steps per day [facility] Allergies, Adverse Reactions, Alerts Description No Known Drug Allergies Medications Active Medications SIG Qnty Indications Ordering Provider Date Omeprazole 1 by mouth every 30caps R13.14 Tiffany Vidal, 04/10/2018 40mg day 30min before MD Katlin patrick meal--call with update at refill Immunizations CPT Code Status Date Vaccine Reaction Lot # [id number] Given 12/28/2017 Flu Vaccine NOS given at pharmacy Q2037 Given 12/25/2014 Fluvirin Immunization 26966 Given 12/04/2012 Afluria Or Fluvirin Flu Vac Intramuscular 82525 Given 11/24/2011 Code For Flu Shot 73114 Given 11/24/2011 Tdap (Adacel) Ages 7 And Above Only Q2039 Refused 10/30/2018 Flu Vaccine NOS will get at pharmacy in fall. 94584 Refused 10/08/2016 Influenza Virus Vaccine,Quadrivalent,Split,Pre serv Free, 0.5mL,Im Vital Signs Date Vital Result Comment 10/30/2018 8:31am Weight 221.00 lb Heart Rate 80 /min BP Systolic 130 mmHg BP Diastolic 78 mmHg Respiratory Rate 18 /min Height 69.25 inches 5'9.25" BMI (Body Mass Index) 32.4 kg/m2 08/23/2018 4:00pm Body Temperature 98.0 F Weight 216.00 lb Heart Rate 76 /min BP Systolic 120 mmHg BP Diastolic 70 mmHg Respiratory Rate 18 /min Height 69.25 inches 5'9.25" BMI (Body Mass Index) 31.7 kg/m2 Results Description No Information Available Procedures Date Code Description Status 10/30/2018 83594 Brief Emotional/Behav Assessment W/ Scoring Doc Per Completed Standard Inst 08/23/2018 82113 Brief Emotional/Behav Assessment W/ Scoring Doc Per Completed Standard Inst 05/05/2018 [id number] Mammogram Completed 11/03/2017 [id number] Mammogram Completed 10/10/2017 [id number] Mammogram Completed 11/25/2015 [id number] Colonoscopy Completed 07/03/2014 [id number] Mammogram Completed Medical Devices Description No Information Available Encounters Type Date Location Provider Dx Diagnosis Office Visit 08[facility]/2018 [facility] Tiffany Vidal, R13.14 Dysphagia, 3:15p pharyngoesophageal phase E66.9 Obesity, unspecified K44.9 Diaphragmatic hernia without obstruction or gangrene F33.1 Major depressive disorder, recurrent, moderate Z68.31 Body mass index (BMI) 31.0-31.9, adult Assessments Date Code Description Provider 10/30/2018 F33.1 Major depressive disorder, recurrent, moderate Tiffany Vidal MD 10/30/2018 R13.14 Dysphagia, pharyngoesophageal phase Tiffany Vidal MD 10/30/2018 K44.9 Diaphragmatic hernia without obstruction or Tiffany Vidal MD gangrenricky 10/30/2018 E66.9 Obesity, unspecified Tiffany Vidal MD 10/30/2018 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 Tiffany Vidal MD 10/30/2018 Z68.32 Body mass index (BMI) 32.0-32.9, adult Tiffany Vidal MD 08/23/2018 R13.14 Dysphagia, pharyngoesophageal phase Tiffany Vidal MD 08/23/2018 E66.9 Obesity, unspecified Tiffany Vidal MD 08/23/2018 K44.9 Diaphragmatic hernia without obstruction or Tiffany Vidal MD gangrenricky 08/23/2018 F33.1 Major depressive disorder, recurrent, moderate Tiffany Vidal MD 08/23/2018 Z68.31 Body mass index (BMI) 31.0-31.9, adult Tiffany Vidal MD Plan of Treatment Future Appointment(s):01/05/2019 2:00 pm - T[facility] - Tiffany Vidal MDF33.1 Major depressive disorder, recurrent, heyivfjqT29.14 Dysphagia, pharyngoesophageal phaseReferral:Roman Bar MD, K44.9 Diaphragmatic hernia without obstruction or qcbhkwccR51.9 Obesity, unspecifiedComments:continue to work on diet, exercise, weight lossD48.61 Neoplasm of uncertain behavior of RIGHT waxrqoJ86.32 Body mass index (BMI) 32.0- 32.9, adultComments:recommend healthy lower calorie diet and regular exercise to help with weight loss Functional Status Description No Information Available Mental Status Description No Information Available Referrals Refer to Reason for Referral Status Appt Date Roman Bar MD 48 yo, you did EGD in 04/2018, continued Created dysphagia and abd pain despite omep 40mg needs to limit caffeine [facility] [address] [place] [address] [phone] Bari Chakraborty MD pt with dense breasts on mammo, US Closed 2018 concerning for 2 lesions that need US guided breast biopsy. see triage 05/09 to discuss with pt and see what she wants to do LC i called and spoke with patient and gave her appt information 05/10am [address] [facility] [address] [phone]
[2018-11-28 15:59] VITALS: BP 118/77
--- NOTE | 2018-11-28 16:45 | UC ---
Ear Complaint HPI - HPI Summary HPI Summary: 48-year-old female presents with complaints of decreased hearing to both ears. States she has a history of cerumen impaction. She has been using Debrox ear drops for the past couple of days with no resolution in her symptoms. Denies fever, chills, ear pain, ear drainage, tinnitus, vertigo, or URI symptoms. - History of Current Complaint Chief Complaint: UCEar Stated Complaint: EARS PLUGGED Time Seen by Provider: 11/28/18 16:05 Hx Last Menstrual Period: 2 mos. Pain Intensity: 0 - Allergies/Home Medications Allergies/Adverse Reactions: Allergies Allergy/AdvReac Type Severity Reaction Status Date / Time No Known Allergies Allergy Verified 11/28/18 15:56 Home Medications: Home Medications NK [No Home Medications Reported] 11/28/18 [History Confirmed 11/28/18] PMH/Surg Hx/FS Hx/Imm Hx Previously Healthy: Yes - Denies significant PMH - Surgical History Surgical History: Yes Surgery Procedure, Year, and Place: Uterine Ablation, ~2011. T&A, 1974. E- sure procedure. breast biopsy 05/30 - Family History Known Family History: Positive: Cardiac Disease, Hypertension, Diabetes Negative: Renal Disease - Social History Occupation: Employed Full-time Lives: With Family Alcohol Use: Occasionally Substance Use Type: None Smoking Status (MU): Never Smoked Tobacco - Immunization History Most Recent Influenza Vaccination: [id number] Review of Systems All Other Systems Reviewed And Are Negative: Yes Constitutional: Negative: Fever, Chills Eyes: Negative: Drainage, Eye Redness ENT: Positive: Other - See HPI. Negative: Sore Throat, Nasal Discharge, Sinus Congestion Respiratory: Positive: Negative Cardiovascular: Positive: Negative Gastrointestinal: Positive: Negative Genitourinary: Positive: Negative Musculoskeletal: Positive: Negative Neurological: Positive: Negative Is Patient Immunocompromised?: No Physical Exam - Summary Physical Exam Summary: GENERAL APPEARANCE: Well developed, well nourished, alert and cooperative, and appears to be in no acute distress. EYES: Conjunctiva clear. No drainage. EARS: Bilateral external auditory canals with cerumen impaction. TMs not visualized. NOSE: No nasal discharge. THROAT: Pharynx normal No tonsilar inflammation, swelling, exudate, or lesions. Uvula midline. Oral cavity normal. Teeth and gingiva in good general condition. NECK: Neck supple, non-tender without lymphadenopathy. CARDIAC: Normal S1 and S2. No S3, S4 or murmurs. Rhythm is regular. There is no peripheral edema, cyanosis or pallor. Extremities are warm and well perfused. Capillary refill is less than 2 seconds. Peripheral pulses intact. LUNGS: Clear to auscultation without rales, rhonchi, wheezing or diminished breath sounds. ABDOMEN: Positive bowel sounds. Soft, nondistended, nontender. No guarding or rebound. No masses or hepatosplenomegally. MUSKULOSKELETAL: ROM intact to all extremities. No joint erythema or tenderness. Normal muscular development. Normal gait. SKIN: Skin normal color, texture and turgor with no lesions or eruptions. Triage Information Reviewed: Yes Vital Signs: Initial Vital Signs Temp 98.5 F 11/28/18 15:56 Pulse 81 11/28/18 15:56 Resp 16 11/28/18 15:56 BP 118/77 11/28/18 15:56 Pulse Ox 99 11/28/18 15:56 Vital Signs Reviewed: Yes Ear Complaint Course/Dx - Course Course Of Treatment: 48-year-old female presents with complaints of decreased hearing to both ears. States she has a history of cerumen impaction. She has been using Debrox ear drops for the past couple of days with no resolution in her symptoms. Denies fever, chills, ear pain, ear drainage, tinnitus, vertigo, or URI symptoms. Afebrile. Vital signs stable. Patient had bilateral cerumen impaction an otherwise unremarkable exam. Her bilateral external auditory canals were irrigated by the RN and the cerumen impaction was successfully removed from both years. Post irrigation she had clear bilateral external auditory canals with intact TMs that were opaque with good cone of light. Patient is to follow- up with her primary care provider as needed. Anticipatory guidance and warning symptoms are reviewed with the patient. Verbalizes understanding and agrees with plan of care. - Differential Dx/Diagnosis Differential Diagnosis/HQI/PQRI: Cerumen Impaction, Foreign Body, Otitis Externa , Otitis Media Provider Diagnosis: Bilateral impacted cerumen Discharge ED - Sign-Out/Discharge Documenting (check all that apply): Patient Departure All imaging exams completed and their final reports reviewed: No Studies - Discharge Plan Condition: Stable Disposition: HOME Patient Education Materials: Cerumen Impaction (ED) Referrals: Tiffany Vidal MD [Primary Care Provider] - If Needed Additional Instructions: We were able to successfully remove the ear wax impaction from your ears. Follow up with your primary care provider as needed. Seek immediate medical attention if you develop fever, chills, ear pain, drainage or blood from the ear, hearing loss, or any worsening of symptoms. - Billing Disposition and Condition Condition: STABLE Disposition: Home - Attestation Statements Provider Attestation: Per institutional requirements, I have reviewed the chart, however, I was not consulted specifically or made aware of this patient by the midlevel provider. I did not personally evaluate, interact with , or disposition this patient.
== END 2018-11-28 16:50 | disposition home or self-care (01) ==
LOC: UCCORT 15:29
DX: H61.23 Impacted cerumen, bilateral (principal)
CPT/HCPCS: 99213; G0463